=== PATIENT | female | born 1970 | race Caucasian/White ===

== ENCOUNTER 2019-01-26 22:13 | Emergency (ER) | payer OTHER ==
[2019-01-26 22:13] VITALS: BMI 24.5
[2019-01-26 22:25] VITALS: BP 127/76; PULSE 79; RESP 18; TEMP 98.8; O2SAT 96
[2019-01-26 22:52] LABS: SQUAMOUS EPITHIAL 1 /hpf (0-5); URINE BILIRUBIN NEGATIVE (NEGATIVE); URINE BLOOD 1+ (NEGATIVE); URINE CLARITY Clear (Clear); URINE COLOR Amber (YELLOW); URINE GLUCOSE (UA) NORMAL (Normal); URINE LEUKOCYTE ESTERASE NEG Leu/uL (Negative); URINE PROTEIN NEGATIVE (NEGATIVE)
--- NOTE | 2019-01-26 23:06 | C.PDOC ---
History Of Present Illness 48-year-old female presents to the emergency department with complaints of dysuria for the last three days as well as lower back left flank pain today. Patient states that her dysuria has been on and off for the last few months but she had never gotten it treated. Patient denies fever and vomiting. Time Seen by Provider: 01/26/19 22:32 Chief Complaint (Nursing): Female Genitourinary History Per: Patient History/Exam Limitations: no limitations Onset/Duration Of Symptoms: Days (3), Persistent Current Symptoms Are (Timing): Still Present Quality Of Discomfort: "Pain" Associated Symptoms: Back Pain, Urinary Symptoms. denies: Fever, Chills Past Medical History Reviewed: Historical Data, Nursing Documentation, Vital Signs Vital Signs: Last Vital Signs Temp 98.8 F 01/26/19 22:20 Pulse 79 01/26/19 22:20 Resp 18 01/26/19 22:20 BP 127/76 01/26/19 22:20 Pulse Ox 96 01/26/19 22:20 Primary Care Provider: Non [facility] Provider, - Medical History PMH: Hypothyroidism Denies: Chronic Kidney Disease Surgical History: No Surg Hx - [facility] Procedures RESECTION OF CERVIX, OPEN APPROACH (10/09/15) RESECTION OF UTERUS, OPEN APPROACH (10/09/15) Family History: States: No Known Family Hx - Social History Hx Alcohol Use: Yes Hx Substance Use: No - Immunization History Hx Tetanus Toxoid Vaccination: No Hx Influenza Vaccination: No Hx Pneumococcal Vaccination: No Review Of Systems Constitutional: Negative for: Fever, Chills, Weakness ENT: Negative for: Nose Discharge, Nose Congestion, Throat Pain Cardiovascular: Negative for: Chest Pain Respiratory: Negative for: Cough, Shortness of Breath Gastrointestinal: Negative for: Nausea, Vomiting, Diarrhea Genitourinary: Positive for: Dysuria. Negative for: Frequency, Hematuria Musculoskeletal: Positive for: Back Pain Neurological: Negative for: Weakness, Numbness Physical Exam - Physical Exam Additional Physical Exam Comments: General: Well, non-toxic, NAD Skin: normal, warm, no rash Head: Normocephalic, Atraumatic Eyes: Normal Inspection (no scleral icterus), PERRL, EOMI Ears: Normal (no drainage) Mucosa moist Neck: supple, normal ROM Chest: Symmetrical Respiratory: No accessory muscle use, other (Normal inspiratory effort) Abdomen: Soft, Non-distended, non-tender. Back: Left-sided CVA tenderness. Extremities: Atraumatic, Normal ROM Radial pulses 2+ Neuro: Oriented x3 ED Course And Treatment - Laboratory Results Lab Results: Urine Color Dayna (YELLOW) 01/26/19 22:46 Urine Clarity Clear (Clear) 01/26/19 22:46 Urine pH 6.0 (5.0-8.0) 01/26/19 22:46 Ur Specific [place] 1.002 (1.003-1.030) L 01/26/19 22:46 Urine Protein Negative mg/dL (NEGATIVE) 01/26/19 22:46 Urine Glucose (UA) Normal mg/dL (Normal) 01/26/19 22:46 Urine Ketones Negative mg/dL (NEGATIVE) 01/26/19 22:46 Urine Blood 1+ (NEGATIVE) H 01/26/19 22:46 Urine Nitrate Positive (NEGATIVE) H 01/26/19 22:46 Urine Bilirubin Negative (NEGATIVE) 01/26/19 22:46 Urine Urobilinogen 4.0 mg/dL (0.2-1.0) H 01/26/19 22:46 Ur Leukocyte Esterase Neg Sanchez/uL (Negative) 01/26/19 22:46 Urine WBC (Auto) < 1 /hpf (0-5) 01/26/19 22:46 Urine RBC (Auto) < 1 /hpf (0-3) 01/26/19 22:46 Ur Squamous Epith Cells 1 /hpf (0-5) 01/26/19 22:46 O2 Sat by Pulse Oximetry: 96 (RA) Pulse Ox Interpretation: Normal Medical Decision Making Medical Decision Making: Plan: Macrobid 100mg PO POC Urine Urinalysis Disposition Counseled Patient/Family Regarding: Diagnosis, Need For Followup, Rx Given - Disposition Disposition: HOME/ ROUTINE Disposition Time: 23:07 Condition: STABLE Prescriptions: Nitrofurantoin Monohyd/M-Cryst [Macrobid 100 mg Capsule] 100 mg PO BID 7 Days capsule Instructions: Urinary Tract Infection, Adult (DC) Forms: [facility] ([place]), General Discharge Instructions - Clinical Impression Clinical Impression: Urinary tract infection - PA / [employer] / Resident Statement MD/DO has reviewed & agrees with the documentation as recorded. - Scribe Statement The provider has reviewed the documentation as recorded by the Scribe (David Jc) All medical record entries made by the Scribe were at my direction and personally dictated by me. I have reviewed the chart and agree that the record accurately reflects my personal performance of the history, physical exam, medical decision making, and the department course for this patient. I have also personally directed, reviewed, and agree with the discharge instructions and disposition.
== END 2019-01-26 23:14 | disposition home or self-care (01) ==
LOC: C.ER 22:13
DX: N39.0 Urinary tract infection, site not specified (principal); E03.9 Hypothyroidism, unspecified